=== PATIENT | male | born 1960 | race African-American/Black ===

== ENCOUNTER 2023-08-15 08:52 | Day surgery (SDC) | payer BC ==
[2023-08-10 10:50] VITALS: BMI 29.5
[2023-08-15] MEDS ORDERED: PROPOFOL 80 ML ONE (11:16)
[2023-08-15 11:53] VITALS: RESP 16; TEMP 97.6
[2023-08-15 12:19] VITALS: BP 126/78; PULSE 71
== END 2023-08-15 12:45 | disposition home or self-care (01) ==
LOC: FASU-ENDO 08:52
PROVIDERS: ATTEND Internal Medicine Gastroenterology
PROC: 0DJD8ZZ Inspection of Lower Intestinal Tract, Via Natural or Artificial Opening Endoscopic (ICD-10-PCS; principal; 2023-08-15 11:12)
DX: Z12.11 Encounter for screening for malignant neoplasm of colon (principal)